=== PATIENT | female | born 1980 | race Caucasian/White ===

== ENCOUNTER 2023-03-18 10:29 | Outpatient (REF) | payer OTHER, SELFPAY ==
--- NOTE | ~2023-03-18 | MM_ITS ---
EXAMINATION: MM SCREENING DIGITAL BREAST TOMOSYNTHESIS, BILATERAL CLINICAL INFORMATION: Screening. Asymptomatic. COMPARISON: Mammography: This is a baseline study. TECHNIQUE: Digital breast tomosynthesis is performed in both the craniocaudal and mediolateral oblique views along with computer-aided detection (CAD). Synthesized 2D images are generated from the tomosynthesis. FINDINGS: The breasts are heterogeneously dense, which may obscure small masses (ACR BI-RADS breast composition Category c). There are no significant masses, abnormal calcifications, or other abnormalities. MM/MM tomosynthesis screening BI IMPRESSION: No mammographic evidence of malignancy. ASSESSMENT: BI-RADS BI-RADS 1 - Negative RECOMMENDATION: Routine annual mammography screening. 1 year F/U This examination should not preclude the clinical evaluation of a suspicious palpable abnormality. This patient's information was entered into a reminder system with a target due date for their next mammogram.
== END 2023-03-18 10:30 | disposition home or self-care (01) ==
LOC: HO.MAMMO 10:29
PROVIDERS: PCP Nurse Practitioner Family; Visit Provider Nurse Practitioner Family
DX: Z12.31 Encounter for screening mammogram for malignant neoplasm of breast (principal)
CPT/HCPCS: 77063; 77067

== ENCOUNTER → 2023-03-18 10:45 | Outpatient (BNV) | payer OTHER, SELFPAY | PROVIDERS: PCP Nurse Practitioner Family; Visit Provider Radiology Diagnostic Radiology | DX: Z12.31 Encounter for screening mammogram for malignant neoplasm of breast (principal) | CPT/HCPCS: 77063; 77067 ==

== ENCOUNTER 2024-04-17 11:06 | Outpatient (REF) | payer BC, SELFPAY ==
--- NOTE | ~2024-04-17 | MM_ITS ---
EXAMINATION: MM SCREENING DIGITAL BREAST TOMOSYNTHESIS, BILATERAL CLINICAL INFORMATION: Screening. Asymptomatic. COMPARISON: Mammography: Comparison is made with available priors TECHNIQUE: Digital breast mammography with tomosynthesis is performed in both the craniocaudal and mediolateral oblique views along with computer-aided detection (CAD). FINDINGS: The breasts are heterogeneously dense, which may obscure small masses (ACR BI-RADS breast composition Category c). Right: There are no significant masses, abnormal calcifications, or other abnormalities. Left: Developing Focal asymmetry central outer breast posterior depth. No suspicious calcifications or other abnormal findings. MM/MM tomosynthesis screening BI IMPRESSION: Additional imaging is recommended ASSESSMENT: BI-RADS BI-RADS 0 - Incomplete: Needs additional Imaging. RECOMMENDATION: 1. Additional views of the left breast. 2. Targeted ultrasound if warranted after review of the additional views. 3. Radiology department staff will contact the patient for additional imaging. Additional Imaging required This examination should not preclude the clinical evaluation of a suspicious palpable abnormality. This patient's information was entered into a reminder system with a target due date for their next mammogram. Electronically signed by: Meseret Henry DO 04/28/2024 09:51 AM EDT
== END 2024-04-17 11:07 | disposition home or self-care (01) ==
LOC: HO.MAMMO 11:06
PROVIDERS: PCP Nurse Practitioner Family; Visit Provider Nurse Practitioner Family
DX: Z12.31 Encounter for screening mammogram for malignant neoplasm of breast (principal)
CPT/HCPCS: 77063; 77067

== ENCOUNTER → 2024-04-17 11:15 | Outpatient (BNV) | payer BC, SELFPAY | PROVIDERS: PCP Nurse Practitioner Family; Visit Provider Internal Medicine | DX: Z12.31 Encounter for screening mammogram for malignant neoplasm of breast (principal) | CPT/HCPCS: 77063; 77067 ==

== ENCOUNTER → 2024-05-08 08:30 | Outpatient (BNV) | payer BC, SELFPAY | PROVIDERS: PCP Obstetrics & Gynecology; Visit Provider Radiology Diagnostic Radiology | DX: R92.8 Other abnormal and inconclusive findings on diagnostic imaging of breast (principal) | CPT/HCPCS: 77061; 77065 ==

== ENCOUNTER 2024-05-08 08:33 | Outpatient (REF) | payer BC, SELFPAY ==
--- NOTE | ~2024-05-08 | MM_ITS ---
EXAMINATION: MM DIAGNOSTIC DIGITAL BREAST TOMOSYNTHESIS, LEFT CLINICAL INFORMATION: Diagnostic; evaluate focal asymmetry in left breast 3:00 axis outer one third, posterior one third. COMPARISON: Mammography: 04/17/2024, 03/18/2023. TECHNIQUE: Digital breast tomosynthesis is performed in the following views: Full field 3-D left mediolateral view, as well as 3-D spot compression left CC and MLO views. Computer-aided diagnosis was used for this study. FINDINGS: The breasts are heterogeneously dense, which may obscure small masses (ACR BI-RADS breast composition Category c). The area of mammographic concern 3:00 axis left breast posterior one third completely effaces after spot compression views and on full field MLO view, and is consistent with superimposition artifact of overlapping breast tissues. There are no suspicious masses, suspicious grouped calcifications, or areas of architectural distortion in the left breast. The overall parenchymal pattern is stable from prior exams. There is no skin or axillary abnormality. MM/MM tomosynthesis added views L IMPRESSION: -There are no persistent findings left breast suspicious for malignancy. -Recommend the patient return to routine annual screening mammography. ASSESSMENT: BI-RADS BI-RADS 1 - Negative RECOMMENDATION: 1 year F/U Results were provided to the patient at time of visit by the technologist. This patient's information was entered into a reminder system with a target due date for their next mammogram. Electronically signed by: Michele Quinteros MD 05/08/2024 09:33 AM EDT
== END 2024-05-08 08:34 | disposition home or self-care (01) ==
LOC: HO.MAMMO 08:33
PROVIDERS: PCP Obstetrics & Gynecology; Visit Provider Obstetrics & Gynecology
DX: R92.2 Inconclusive mammogram (principal)
CPT/HCPCS: 77061; 77065

== ENCOUNTER 2025-04-30 10:49 | Outpatient (REF) | payer BC, SELFPAY ==
--- NOTE | ~2025-04-30 | MM_ITS ---
EXAMINATION: MM SCREENING DIGITAL BREAST TOMOSYNTHESIS, BILATERAL CLINICAL INFORMATION: Screening. Asymptomatic. COMPARISON: Mammography: Comparison is made with available priors TECHNIQUE: Digital breast mammography with tomosynthesis is performed in both the craniocaudal and mediolateral oblique views along with computer-aided detection (CAD). FINDINGS: The breasts are heterogeneously dense, which may obscure small masses. There are no significant masses, abnormal calcifications, or other abnormalities. MM/MM tomosynthesis screening BI IMPRESSION: No mammographic evidence of malignancy. ASSESSMENT: BI-RADS Category 1: Negative RECOMMENDATION: Routine annual mammography screening. 1 year F/U This examination should not preclude the clinical evaluation of a suspicious palpable abnormality. This patient's information was entered into a reminder system with a target due date for their next mammogram. Electronically signed by: Meseret Henry DO 04/30/2025 11:18 AM EDT
--- OUTSIDE RECORDS SUMMARY | 2025-04-30 13:01 | XMS_ITS | Patient Health Record ---
[facility] Address [address] [place] [address] Care Team Providers Care General Scrap Worker Name Role Phone PEPE LAYTON Unavailable [phone] Allergies No Known Allergies Reason For Referral No Information Medications Medication SIG (Take, Route, Fr equency, Duration) Notes Start Date End Date Status Claritin 10 MG 1 capsule Orally Onc e a day; Duration: 30 day(s) Not-Taking Multi Complete - as directed Orally Active Social History AUDIT-C (Standard) Question Answer Notes Did you have a drink contain ing alcohol in the past year? Yes How often did you have a dri nk containing alcohol in the past year? 2 to 4 times a month (2 points) How many drinks did you have on a typical day when you were drinking in the past year? 1 or 2 drinks (0 point) How often did you have six o r more drinks on one occasion in the past year? Less than monthly (1 point) Points 3 Interpretation Positive Problems Problem Type SNOMED Code ICD Code Onset Dates Problem Status W/U Status Risk Notes Problem Hypothyroidism (97232765) Hypothyroidism, unspecified (E03.9) Active confirmed Problem Uncomplicated asthma (disorder) (438142587) Unspecified asthma, uncomplicated (J45.909) Active confirmed Problem Amenorrhea (60666350) Amenorrhea, unspecified (N91.2) Active confirmed Problem Abnormal uterine bleeding (11876754951831) Abnormal uterine and vaginal bleeding, unspecified (N93.9) Active confirmed Problem History of thromboembolism of vein (241042917) Personal history of other venous thrombosis and embolism (Z86.718) Active confirmed Problem COVID-19 (287060928) COVID-19 (U07.1) Active confirmed Vital Signs Temperature 97.4 degrees Fahrenheit 02/08/2025 Blood pressure diastolic 68 mm Hg 02/08/2025 Height 62 in 02/08/2025 Blood pressure systolic 96 mm Hg 02/08/2025 Weight 139 lbs 02/08/2025 BMI 25.42 kg/m2 02/08/2025 Encounters Encounter Location Date Provider [facility] [address] [place] [address] 02/08/2025 PEPE LAYTON Encounter for gynecological examination (general) (routine) without abnormal findings Z01.419 and Encounter for screening mammogram for malignant neoplasm of breast Z12.31 [facility] [address] [place] [address] 05/02/2024 PEPE LAYTON Inconclusive mammogr am R92.2 Assessments Encounter Date Diagnosis (ICD Code) Assessment Notes Treatment Notes Treatment Clinical Notes Section Notes 05/02/2024 Inconclusive mammogram (ICD-10 - R92.2) 02/08/2025 Encounter for gynecological examination (general) (routine) without abnormal findings (ICD-10 - Z01.419) Discussed cervical cancer screening with either cytology alone every 3 years or high risk HPV co-testing every 5 years as per ASCCP guidelines. Advised continued annual pelvic exams. Patient encouraged to increase her level of exercise. SBE technique encouraged/tau ght. Patient reminded when annual mammogram is due. 02/08/2025 Encounter for screening mammogram for malignant neoplasm of breast (ICD-10 - Z12.31) Plan Of Treatment Pending Test Test Name Order Date Test, Urine 01/06/2022 ONE SWAB 02/03/2017 DIAGNOSTIC MAMMOGRAM, LEFT BREAST 2023 ANTI HBS QUANT 05/20/2016 FSH 01/06/2022 TSH WITH REFLEX TO FT4 01/06/2022 PROLACTIN WITH REFLEX TO MONOMERIC 01/06 Left Breast Ultrasound 05/02/2024 MM Digital Screening Mammogram 3D 2024 MM Digital Screening Mammogram 3D 2022 MM Digital Screening Mammogram 3D 2023 Chlamydia/GC Amplification-[id number] 2023 Next Appt Details Provider Name:PEPE Dominguez, 02/11/2026 08:00:00 AM, [address], [place], [address], Insurance Providers Payer Name Payer Address Payer Phone Subscriber Number Group Number Insured Name Patient Relationship to Insured Coverage Start Date Coverage End Date [employer] [address] [place] [address] [id number] TIFFANI FIELDS Self - patient is the insured Medical (General) History Medical History History ICD Code DVT after foot surgery, negative hematol ogy work up for clotting disorder Personal history of other venous thrombo sis and embolism Z86.718 Unspecified asthma, uncomplicated J45.90 9 COVID-19 U07.1 Surgical History Surgery Date(Month/Year) Foot Surgery 05/2013 Egg retrieval 2018 Hospitalization History Reason Date(Month/Year) See Surgical Hx
--- OUTSIDE RECORDS SUMMARY | 2025-04-30 13:02 | XMS_ITS | Clinical Summary ---
Author Organization [facility] [address] [place] [address] [place] [phone] Phone Care Team Providers Care Store Lead Name Role Phone Danitza Mukherjee MD Primary Care Prov ider Allergies Active Allergy Reactions Criticality Noted Date Comments Milk Containing Products (Dairy) 01/01/2017 Shrimp Diarrhea 01/01/2017 Vomiting , diarrhea Medications multivitamin (Multiple Vitamins) tablet Take by mouth. Active lactase (LACTAID) 4,500 unit tablet Take 1 Tab by mouth daily as needed for Other (dairy intolerance ). 01/01/2017 Active Active Problems Problem Noted Date Diagnosed Date Chronic diarrhea 12/28/2024 Assessment & Plan (12/28/2024 3:26 PM EDT): Patient complains of chronic diarrhea. She has been tested for celiac disease with negative results. She has been following with GI. She would like to be tested for parasites. Will also check thyroid panel. Orders: Ova and parasites with giardia antigen; Future Thyroid stimulating hormone with reflex to free t4 and free t3; Future Surgical History Surgery Date Site/Laterality Comments FOOT SURGERY 2012 Right PROCEDURE: OR UNLISTED PROCEDURE FOOT/TOES; COMMENT: Dr. Marie - nerve Medical History Medical History Date Comments Childhood asthma 01/01/2017 DX:Childhood as thma; COMMENT: Resolved with adulthood Childhood asthma 01/01/2017 DX:Childhood as thma; COMMENT: Resolved with adulthood Family History Medical History Relation Name Comments No Known Problems Brother 2 No Known Problems Father Heart attack Maternal Grandfather Other: kidney failure Maternal Grandmother No Known Problems Mother Lung cancer Paternal Grandfather Asthma Paternal Grandmother vega is, pneumonia No Known Problems Sister 2 Relation Name Status Comments Brother 2 Alive Father Alive Maternal Grandfather Maternal Grandmother Mother Alive Paternal Grandfather Paternal Grandmother Alive Sister 2 Alive Social History Tobacco Use Types Packs/Day Years Used Date Smoking Tobacco: Never Smokeless Tobacco: Never Tobacco Cessation:Counseling Given: Not Answered Alcohol Use Standard Drinks/Week Comments Yes 2 (1 standard drink = 0.6 oz pur e alcohol) Housing Instability Answer Date Recorde d Are you worried that in the next 2 months you may not have stable housing? No 10/23/2024 Food Access & Nutrition Answer Date Rec orded Do you have access to a vari ety of food including fruits and vegetables? Yes 10/23/2024 Health Literacy Answer Date Recorded How often do you need to hav e someone help you when you read instructions, pamphlets, or other written material from your doctor or pharmacy? Never 10/23/2024 Caregiver: How often do you need to have someone help you when you read instructions, pamphlets, or other written material from your doctor or pharmacy? Not on file 10/23/2024 Financial Risk Answer Date Recorded How hard is it for you to pa y for the very basics like food, housing, medical care, and air conditioning / heating? Not very hard 10/23/2024 Transportation Answer Date Recorded Has the lack of transportati on kept you from meetings, work, or from getting things needed for daily living? No Has the lack of transportati on kept you from medical appointments or from getting medications? No 10/23/2024 Social Isolation Answer Date Recorded How often do you feel lonely or isolated from th ose around you? Never 10/23/2024 Food Risk Answer Date Recorded Within the past 12 months we worried whether our food would run out before we got money to buy more. Never true 10/23/2024 Within the past 12 months th e food we bought just didn't last and we didn't have money to get more. Never true 10/23/2024 Dependent Care Answer Date Recorded Do you need help finding or paying for care for your loved ones. For example, child support agent or elderly care for an older adult? No 10/23/2024 Education Answer Date Recorded Do you think completing more education or training, like finishing a GED, going to college, or learning a trade, would be helpful for you? No 10/23/2024 Employment and Income Answer Date Recor ded During the last four weeks, have you been actively looking for work? No 10/23/2024 Living Situation Answer Date Recorded What is your living situation? Unrecognized valu e 10/23/2024 Comments No Sex and Gender Information Value Date Recorded Sex Assigned at Not on file Legal Sex Female 8:24 AM EST Gender Identity Not on file Sexual Orientation Not on file Obstetrics History Last Filed Vital Signs Vital Sign Reading Time Taken Comments Blood Pressure 119/78 12/28/2024 2:56 PM EDT Pulse 52 12/28/2024 2:56 PM EDT Temperature 36.8 C (98.2 F) 10/23/2024 7:34 AM EDT Respiratory Rate 13 10/23/2024 7:34 AM EDT Oxygen Saturation - - Inhaled Oxygen Concentration - - Weight 64 kg (141 lb) 12/28/2024 2:56 PM EDT Height 157.5 cm (5' 2 ) 12/28/2024 2:56 PM EDT Body Mass Index 25.79 12/28/2024 2:56 PM EDT Plan of Treatment Upcoming Encounters Date Type Department Care Team (Late st Contact Info) Description 01/03/2026 7:30 AM EDT Office Visit Adult Medicine [address] [phone] Danitza Mukherjee MD [address] [place] [address] Health Maintenance Due Date Last Done Comments Cervical Cancer Screening: Pap Smear 2003 HPV Vaccines (1 - 3-dose SCD M series) 2009 HIV Screening 08/10/2023 COVID-19 Vaccine (2023-2 5 season) 2025 Influenza Vaccine (#1) 2025 Social Influencers of Health Screening 10/23/2025 10/23/2024 Breast Cancer Screening 05/02/2026 05/02/2024 DTaP,Tdap,and Td Vaccines (2 - Td or Tdap) 01/27/2028 01/26/2018 Cholesterol Screening (Lipid Panel) 01/01/2030 01/01/2025, 01/19/2023 RSV Immunization Adult Patients (1 - 1-dose 75+ series) 2057 Hepatitis A Vaccines Aged Out 08/14/2015, 01/08/2015 No longer eligible based on patient's age to complete this topic Depression Screening Completed 12/27/2024 Hepatitis C Screening Completed 01/01/2025 HIB Vaccines Aged Out No longer eligi ble based on patient's age to complete this topic Hepatitis B Vaccines Discontinued IPV Vaccines Aged Out No longer eligi ble based on patient's age to complete this topic MMR Vaccines Aged Out No longer eligi ble based on patient's age to complete this topic Meningococcal ACWY Vaccine Aged Out N o longer eligible based on patient's age to complete this topic Meningococcal B Vaccine Aged Out No l onger eligible based on patient's age to complete this topic Pneumococcal Vaccine: Pediatrics (0 to 5 Years) and At-Risk Patients (6 to 49 Years) Discontinued RSV Immunization Patients Under 20 months Aged Out No longer eligible based on patient's age to complete this topic Varicella Vaccines Aged Out No longer eligible based on patient's age to complete this topic Procedures Procedure Name Priority Date/Time Associated Diagnosis Comments HEPATITIS C ANTIBODY Routine 01/01/2025 10:25 AM EDT Need for hepatitis C screening test LIPID PANEL WITH REFLEX TO DIRECT LDL Routine 01/01/2025 10:25 AM EDT Encounter for lipid screening for cardiovascular disease from Last 3 Months or Most Recently Relevant to Health Maintenance Results * Hepatitis C antibody (01/01/2025 10:25 AM EDT) Hepatitis C Antibody Negative Negative LAB CHEMISTRY METHOD 01/01/2025 11:15 PM EDT [facility] Blood Venous blood specimen / Unknown Venipuncture / Unknown 01/01/2025 10:25 AM EDT 01/01/2025 10:27 AM EDT us Danitza Mukherjee MD LAB BLOOD ORDERABL ES Final Result [facility] [address] [place] [address], [place] [phone] * (ABNORMAL) Lipid panel with reflex to direct LDL (01/01/2025 10:25 AM EDT) Cholesterol 206(H) 0 - 200 mg/dL LAB CHEMISTRY METHOD 01/01/2025 10:22 PM EDT [facility] Triglycerides 132 0 - 150 mg/dL LAB CHEMISTRY METHOD 01/01/2025 10:22 PM EDT [facility] HDL 82 >=40 mg/dL LAB CHEMISTRY METHOD 01/01/2025 10:22 PM EDT [facility] LDL Calculated 98 0 - 100 mg/dL LAB CHEMISTRY METHOD 01/01/2025 10:22 PM EDT [facility] VLDL Cholesterol Olu 26.4 mg/dL LAB CHEMISTRY METHOD 01/01/2025 10:22 PM EDT [facility] Non HDL Chol. (LDL+VLDL) 124 <145 mg/dL LAB CHEMISTRY METHOD 01/01/2025 10:22 PM EDT [facility] Chol/HDL Ratio 2.5 0.0 - 4.4 LAB CHEMISTRY METHOD 01/01/2025 10:22 PM EDT [facility] Blood Venous blood specimen / Unknown Venipuncture / Unknown 01/01/2025 10:25 AM EDT 01/01/2025 10:27 AM EDT us Danitza Mukherjee MD LAB BLOOD ORDERABL ES Final Result [facility] [address] [place] [address], [place] [phone] from Last 3 Months or Most Recently Relevant to Health Maintenance Insurance [facility] ([employer]) Care Teams Store Lead Relationship Specialty Start Date End Date Danitza Mukherjee MD [address] [place] [phone] PCP - General 05/28/22
== END 2025-04-30 10:50 | disposition home or self-care (01) ==
LOC: HO.MAMMO 10:49
PROVIDERS: PCP Internal Medicine; Visit Provider Internal Medicine
DX: Z12.31 Encounter for screening mammogram for malignant neoplasm of breast (principal)
CPT/HCPCS: 77063; 77067

== ENCOUNTER → 2025-04-30 11:00 | Outpatient (BNV) | payer BC, SELFPAY | PROVIDERS: PCP Internal Medicine; Visit Provider Internal Medicine | DX: Z12.31 Encounter for screening mammogram for malignant neoplasm of breast (principal) | CPT/HCPCS: 77063; 77067 ==